=== PATIENT | male | born 1955 | race Caucasian/White ===

== ENCOUNTER 2016-07-30 08:40 | Day surgery (SDC) | payer OTHER ==
[~2016-07-30] VITALS: Ht 186.7 cm; Wt 97.0 kg
[~2016-07-30 08:40] MED LIST: LIDOCAINE 1% (10mg/ml) 2ml SDV INJ ONE; LR 1,000 ML IV PRN
--- OUTSIDE RECORDS SUMMARY | 2016-07-30 08:44 | XMS REPORT | Continuity of Care Document ---
Demographics Preferred Language Unknown Marital Status Unknown Amish Affiliation Unknown Race Unknown Ethnic Group Unknown Author Author [facility] Organization [facility] Address Unknown Phone Unavailable Allergies Medications Problems Date Dx Coded Attending Type Code Diagnosis Diagnosed By 06/27/2012 Final 786.50 CHEST PAIN NOS Procedures Results Encounters ACCT No. Visit Date/Time Discharge Status Pt. Type Provider Facility Loc./Unit Complaint [id number] 06/27/2012 11:48:00 2012 23:59:59 [facility] Outpatient
[2016-07-30 09:05] VITALS: Ht 186.7 cm; Wt 97.0 kg
[2016-07-30 09:06] VITALS: BP 142/92; PULSE 70; RESP 14; TEMP 98.1; O2SAT 96
[2016-07-30] MEDS ORDERED: PROPOFOL 500mg 50 ML IV ONE (09:20)
[2016-07-30] MEDS ORDERED: HYDR-4078 PO (09:22)
[2016-07-30] MEDS ORDERED: FENTANYL 100mcg/2ml INJECTION ONE (09:22)
[2016-07-30] MEDS ORDERED: MIDAZOLAM 2mg/2ml INJECTION ONE (09:22)
[2016-07-30] MEDS ORDERED: LIDOCAINE 1% (10mg/ml) 30ml SDV ONE (09:30)
[2016-07-30] MEDS ORDERED: DEXAMETHASONE 4mg/ml - 1ml INJECTION ONE (09:30)
[2016-07-30] MEDS ORDERED: BUPIVACAINE 0.5% (5mg/ml) 30ml INJ SDV ONE (09:30)
--- NOTE | 2016-07-30 09:42 | ANESPREOP ---
Anesthesia Record Date and Time DATE: 07/30/16 TIME: 09:41 Proposed Surgical Procedure RT 3RD DANNIE NPO since: 07/29/16 Ht/Wt/BMI Height: 6 ' 1.50 " Weight: 97.000 kg BMI: 27.8 kg/m2 Vital Signs Date Time Temp Pulse Resp B/P Pulse Ox O2 Delivery O2 Flow Rate FiO2 07/30/16 09:06 98.1 70 14 142/92 96 Room Air Medications Inpatient Medications Current Medications Medications (Trade) Dose Ordered Sig/Junior Start Time Stop Time Status Last Admin Dose Admin Lactated Ringer's (Lactated Ringers) 1,000 ml @ 50 mls/hr Q20H PRN 07/30/16 07:00 Hydrocodone/Acetaminophen ([place] 10-325 Tablet) 10-325 Tablet, 1-2 TAB PO, ( Reported) Last Taken: on 07/29/16 0900 Currently on Beta Chris: No Medical/Surgical History Smoking Status: Current every day smoker Has pt. smoked today?: No Past Surgical History Orthopedic Surgeries: Yes - ORIF left femur Abdominal Surgeries: Yes - Lap [place] Genitourinary Surgeries: No Cardiac Surgeries: No Endocrine Surgeries: No Reproductive Surgeries: No Neurological Surgeries: No Ear Surgeries: No Nose Surgeries: No Throat Surgeries: No Other Surgeries: Yes - Exc lesion back Anesthesia Adverse Reactions: FOUND none Family Hx of Anesthesia Advers: none Hx of Motion Sickness: No Pertinent Findings EKG Rhythm: Sinus Rhythm Physical Exam Respiratory: Bilat breath sounds equal, Lungs clear Cardiovascular: FOUND Regular rate, rhythm Airway Assessment Mallampati Score: I TMD: 4 Fingerbreadths Neck Extension: Good ASA: 2 Plan Anesthesia Plan: TIVA Discussion Discussed risks/options/alternatives of anesthesia and questions answered. Patient consents. Nursing pain assessment noted. Attestation Statement Prior to the delivery of any anesthetic medication, I examined the patient, developed the plan, obtained the patient's consent and discussed the risk and benefits of the procedure with the patient/guardian. LISSY RAYGOZA Jul 30, 2016 09:42
[2016-07-30 10:11] VITALS: BP 127/76; PULSE 72; RESP 16; TEMP 97.5; O2SAT 95
--- NOTE | 2016-07-30 10:24 | ANESPO ---
Post-Op Note Date 07/30/16 Time: 10:22 Status Pt Participated in Evaluation: Pt participated in person Vital Signs Date Time Temp Pulse Resp B/P Pulse Ox O2 Delivery O2 Flow Rate FiO2 07/30/16 09:06 98.1 70 14 142/92 96 Room Air Respiratory Function: Airway patent, Regular respirations Cardiovascular Function: Regular pulse Mental Status: Alert/oriented Pain Level Intensity: 0 Hydration: Taking po fluids Complications during Recovery None apparent Follow-Up Instructions Instructions Per Surgeon Additional Information Pt, , and daughter instructed to follow up with PCP about HTN RENETTA CONTI CRNA Jul 30, 2016 10:24
[2016-07-30 10:25] VITALS: BP 131/92; PULSE 67; RESP 16; O2SAT 97
[2016-07-30 10:42] VITALS: BP 149/88; PULSE 55; RESP 16; O2SAT 98
--- NOTE | 2016-07-30 10:52 | DI ---
Indication: ITS.REASON: post op PROCEDURE: FOOT RIGHT 2 VIEWS: Encounter: Initial Comparison: None Findings: Osteotomy noted in the distal aspect of the third toe proximal phalanx. No additional acute fracture or dislocation seen. Old traumatic deformity of the fifth metatarsal base. Calcaneal spurs. Impression: Postoperative changes. .
[2016-07-30] MEDS ORDERED: CEFAZOLIN 1 GRAM INJECTION IV ONE (11:45)
--- NOTE | 2016-07-30 19:38 | OPNOTEF ---
DATE OF PROCEDURE 07/30/2016 PREOPERATIVE DIAGNOSIS Painful right third hammertoe. POSTOPERATIVE DIAGNOSIS Painful right third hammertoe. OPERATION Arthroplasty of the PIP joint of the 3rd digit, right foot. ANESTHESIA Local with IV sedation. SURGEON Schuyler Byrnes DPM HEMOSTAT Pneumatic ankle tourniquet. ESTIMATED BLOOD LOSS Minimal. MATERIALS None. PATHOLOGY bone and soft tissue. COMPLICATIONS None. DESCRIPTION OF PROCEDURE Attention was directed to the 3rd digit right foot where two 2-cm semi-elliptical longitudinal incisions were made over the proximal interphalangeal joint of the digit. The incisions were then deepened through the subcutaneous tissues with care being taken to retract all vital neurovascular structures. The ellipse of skin was removed with sharp and blunt dissection. All bleeders were cauterized and ligated as necessary. A transverse tenotomy and capsulotomy was then performed to the proximal interphalangeal joint of the digit of the foot. The head of the proximal phalanx was then freed of all its soft tissue attachments. A double action bone cutter was then used to resect the head of the proximal phalanx which was then passed from the operating room table. The phalanx was then smoothed of its rough edges with a bone rasp. The wound was then flushed with copious amounts of sterile normal saline and the extensor tendon was reapproximated with 4-0 Vicryl. Skin was reapproximated with 4-0 Prolene. SB
== END 2016-07-30 10:55 | disposition home or self-care (01) ==
LOC: NSC 08:40
PROVIDERS: ATTEND Podiatrist
DX: M20.41 Other hammer toe(s) (acquired), right foot (principal)
CPT/HCPCS: 28285; 73620; J0690; J1100; J2250; J3010; J7120